=== PATIENT | male | born 1970 | race Caucasian/White ===

== ENCOUNTER 2017-11-25 01:54 | Inpatient (IN) | payer OTHER, SELFPAY ==
[2017-11-25 02:44] LABS: #Basophils 0.1 thou/uL (0.0-0.2); #Eosinphils 0.1 thou/uL (0.0-0.7); #Lymphocytes 0.9 thou/uL (1.20-3.40); #Monocytes 0.5 thou/uL (0.11-0.59); #Neutrophils 5.2 thou/uL (1.40-6.50); %Eosinophils 1.8 % (0.0-10.0); %Lymphocytes 12.6 % (21.0-51.0); %Monocytes 7.3 % (0.0-10.0); %Neutrophils 77.3 % (42.0-75.0); Hemoglobin 11.5 g/dL (14.0-18.0); Mean Corpuscular HGB CONC 33.2 g/dL (32.0-36.0); Mean Corpuscular Hemoglobin 33.1 pg (27.0-31.0); Mean Corpuscular Volume 99.7 fl (80.0-94.0); Mean Platelet Volume 6.8 fL (7.4-10.4); Platelet Count 236 thou/uL (130-400); RBC Distribution Width 14.4 % (11.5-14.5); Red Blood Cell (RBC) Count 3.48 mill/uL (4.70-6.10); White Blood Cell (WBC) Count 6.8 thou/uL (4.8-10.8)
[2017-11-25 03:01] LABS: ALT (SGPT) 30 U/L (8-55); AST (SGOT) 96 U/L (5-34); Albumin 3.8 g/dL (3.5-5.0); Alkaline Phosphatase 197 U/L (40-150); Anion Gap 13 mmol/L (10-20); BUN (Urea Nitrogen) 7 mg/dL (8.9-20.6); Bilirubin, Total 0.8 mg/dL (0.2-1.2); Calc. Creatinine Clearance 0 mL/min (70-130); Calcium 8.6 mg/dL (7.8-10.44); Carbon Dioxide 27 mmol/L (22-29); Chloride 100 mmol/L (98-107); Estimated GFR-MDRD Greater than 90; Glucose 243 mg/dL (70-105); Potassium 4.2 mmol/L (3.5-5.1); Protein, Total 6.8 g/dL (6.0-8.3); Sodium 136 mmol/L (136-145)
[2017-11-25 03:02] LABS: Acetaminophen Less than 6.0 mcg/mL (10.0-30.0); Alcohol 162 mg/dL (Less than 10); Salicylate Less than 8.0 mg/dL (15.0-30.0)
[2017-11-25 03:07] LABS: Troponin I Less than 0.010 ng/mL (< 0.028)
[2017-11-25] MEDS ORDERED: Multivitamins, Adult 10 ML, Thiamine HCl 100 MG, Folic Acid 1 MG in Dextrose 5 %-0.45 %... IV SCH (04:45)
[2017-11-25 04:54] LABS: Alcohol 164 mg/dL (Less than 10); CK (CPK) 132 U/L (30-200)
[2017-11-25] MEDS ORDERED: Guaifenesin DM 100-10/5 ML UDCUP PO PRN (05:58)
[2017-11-25] MEDS ORDERED: Dextrose 50% Abboject 50 ML SYRINGE SLOW IVP PRN ×2 (05:58→16:47)
[2017-11-25] MEDS ORDERED: Dextrose 5% in Water 1,000 ML IV PRN ×2 (05:58→16:47)
[2017-11-25] MEDS ORDERED: Ondansetron HCl/PF 4 MG/2 ML Vial IVP PRN (05:58)
[2017-11-25] MEDS ORDERED: Acetaminophen 325 MG TAB PO PRN (05:58)
[2017-11-25 06:29] LABS: Lactic Acid 2.1 mmol/L (0.5-2.2)
--- NOTE | 2017-11-25 06:51 | HP ---
REASON FOR ADMISSION: Acute encephalopathy, brief CPR for unresponsiveness at home, hypoglycemia with fingerstick glucose of 21. HISTORY OF PRESENT ILLNESS: Please note patient does not recall what happened at home. He lives with his parents and father is here at bedside. The patient went to bed at 9:00 p.m. Father heard his son moaning around 12:30 in the morning. He went to check on him. He was barely breathing and was cold and clammy. He was not coherent. He could not wake him up. He tried calling 911 and they asked him to start CPR. He did nearly 7 minutes of CPR prior to EMS arriving, who continued it for another 2 more minutes. They checked his fingerstick it was 20 and gave him IV medications. He apparently woke up in the EMS truck per father. Father also mentions that he has had nearly six such low glucose episodes in the last 5 years. The patient also drank half pint of vodka last evening and has had issues with alcohol abuse. The patient states he took 35 units of Humalog 70/30 yesterday morning. His fingerstick was 199 yesterday in am. He does not recall the exact dose he took yesterday evening. He normally takes anywhere from 20-35 units in the evenings. Currently, the patient is awake and oriented. He responds well to all questions. He is moving all 4 extremities. PAST MEDICAL AND SURGICAL HISTORY: Diabetes mellitus type 2 for last 12 years, hypothyroidism, hypertension, has wasting of small muscles of hand, foot drop, cholecystectomy. CURRENT MEDICATIONS: Humalog 70/30, 35 units in the morning and 20-35 units in the evening, Synthroid 200 mcg p.o. daily, lisinopril which was started recently by his primary care physician, Dr. Mohan. ALLERGIES: No known drug allergies. PERSONAL HISTORY: The patient is known to drink heavy alcohol, does not abuse drugs or smoke. Lives with his parents. CODE STATUS: FULL. Power of branch sales manager is his father. FAMILY HISTORY: Mother is living and has restless leg syndrome. Father is healthy. REVIEW OF SYSTEMS: The following complete review of systems was negative, unless otherwise mentioned in the HPI or below: Constitutional: Weight loss or gain, ability to conduct usual activities. Skin: Rash, itching. Eyes: Double vision, pain. ENT/Mouth: Nose bleeding, neck stiffness, pain, tenderness. Cardiovascular: Palpitations, dyspnea on exertion, orthopnea. Respiratory: Shortness of breath, wheezing, cough, hemoptysis, fever or night sweats. Gastrointestinal: Poor appetite, abdominal pain, heartburn, nausea, vomiting, constipation, or diarrhea. Genitourinary: Urgency, frequency, dysuria, nocturia. Musculoskeletal: Pain, swelling. Neurologic/Psychiatric: Anxiety, depression. Allergy/Immunologic: Skin rash, bleeding tendency. PHYSICAL EXAMINATION: GENERAL: The patient is a 47-year-old male who is currently not in any acute distress. VITAL SIGNS: Blood pressure 126/94, pulse 104 per minute, respiratory rate 16 per minute, temperature 97.5 degrees Fahrenheit, saturating 93% on room air. NECK: Supple, no elevated JVD. HEENT: Extraocular muscles intact. Pupils reacting to light. Oral cavity, mucous membranes are dry. No exudates or congestion. CARDIOVASCULAR SYSTEM: S1, S2 heard. Tachycardic, no murmur. RESPIRATORY SYSTEM: Air entry 1+ bilateral. No rales or rhonchi. ABDOMEN: Soft, bowel sounds heard. No tenderness, rigidity, or guarding. EXTREMITIES: The patient has wasting of small muscles of both upper extremities and has foot drop in lower extremities as well. He states this is due to severe peripheral neuropathy. Peripheral pulses are 2+ bilateral, no ischemic ulcerations or gangrene. CENTRAL NERVOUS SYSTEM: No gross focal deficits seen. The patient moves all 4 extremities. PSYCHIATRIC: The patient is lethargic, but wakes up easily and is oriented x3. No obvious hallucinations or delusions. LABORATORY AND X-RAY FINDINGS: EKG done shows normal sinus rhythm at 99 beats per minute, has incomplete RBBB seen. White count of 6, H&H 11 and 34, platelet count 236, MCV is 99 with 77% neutrophils. Electrolytes are stable. BUN 7, creatinine 0.7, serum glucose 243, lactic acid 2.9, AST 96, ALT 30, alkaline phosphatase 197, total bilirubin 0.8. First set of cardiac enzymes are negative. CK levels 132. Plasma alcohol level is 162. CT cervical spine, CT brain official results are pending at present. Chest x-ray by my review shows no acute cardiopulmonary abnormalities. CLINICAL IMPRESSION AND PLAN: The patient will be admitted to [facility] for severe hypoglycemia with acute encephalopathy and brief unresponsiveness leading to around 9 minutes of CPR done at home. He is currently fully oriented and follows verbal stimuli, but is lethargic. His serum sugar has been about 200. Father at bedside adds that he has had recurrent such episodes and is also alcoholic and has issues with the same. He will be on banana bag at 100 mL per hour. We will check fingerstick glucose every 2 hours and discontinue this once fingerstick glucose is consistently more than 200 at least x3. We will start him on regular diet for now. The patient has tachycardia with heart rates going up to 140s on the monitor. He also has underlying RBBB, no prior cardiac workup. It is unclear if he is just dehydrated. We will closely follow up on this and also obtain an echo with 2D Doppler for LV function. He might require outpatient stress test. DICK
--- NOTE | 2017-11-25 08:55 | RAD ---
UPRIGHT PORTABLE CHEST 1 VIEW: Date: 11/25/17 HISTORY: 47-year-old male with history of altered mental status. COMPARISON: 03/21/15. FINDINGS: Somewhat less than optimal inspiration. Heart size is within normal limits. No confluent pneumonia, o vert edema, or pleural effusion. IMPRESSION: No acute intrathoracic disease. Stable from prior study. POS: [facility]
--- NOTE | 2017-11-25 11:47 | CT ---
PRELIMINARY REPORT/[facility]/EMERGENCY AFTER HOURS PROCEDURE: EXAM: CT Head Without Intravenous Contrast EXAM DATE/TIME: Exam ordered 11/25/2017 2:37 AM CLINICAL HISTORY: 47 years old, male; Injury or trauma and signs and symptoms; Fall; Initial encounter; Abrasion; Not s pecified; Other: Unresposive; Patient HX: Unresponsive per family and cpr started, ems resumed cpr, s ugar 29, given 2 amp d50, sugar 308, pt aler, pulse palpaple and cpr stopped. TECHNIQUE: Axial computed tomography images of the head/brain without intravenous contrast. COMPARISON: No relevant prior studies available. FINDINGS: Brain: There are scattered foci of hypoattenuation within the periventricular and subcortical white m atter compatible with mild chronic microvascular ischemic change. No hemorrhage. Ventricles: Normal. No ventriculomegaly. Bones/joints: Normal. No acute fracture. Soft tissues: Normal. Sinuses: Unremarkable as visualized. No acute sinusitis. Mastoid air cells: Unremarkable as visualized. No mastoid effusion. IMPRESSION: No acute intracranial hemorrhage. Thank you for allowing us to participate in the care of your patient. Dictated and Authenticated by: Alfred Stearns MD 11/25/2017 4:09 AM Central Time ([place] & [place]) FINAL REPORT HEAD CT WITHOUT CONTRAST: Date: 11/25/17 COMPARISON: 03/21/15. HISTORY: Trauma, fall, pain. FINDINGS: This report is in agreement with the preliminary report given by [facility]. The imaged paranasal sinuses a nd mastoid air cells are well aerated. There is no displaced calvarial fracture. There is no intracra nial hemorrhage, midline shift, or mass effect. Stable mild prominence of the CSF-containing spaces w ith associated cerebral volume loss. IMPRESSION: No intracranial hemorrhage. POS: [facility]
--- NOTE | 2017-11-25 11:49 | CT ---
PRELIMINARY REPORT/[facility]/EMERGENCY AFTER HOURS PROCEDURE: EXAM: CT Cervical Spine Without Intravenous Contrast EXAM DATE/TIME: Exam ordered 11/25/2017 2:36 AM CLINICAL HISTORY: 47 years old, male; Injury or trauma; Fall; Initial encounter; Abrasion; Patient HX: Possible fall; U nresponsive per family and cpr started, ems resumed cpr, sugar 29, given 2 amp d50, sugar 308, pt marcus r, pulse palpaple and cpr stopped. TECHNIQUE: Axial computed tomography images of the cervical spine without intravenous contrast. Coronal and sagi ttal reformatted images were created and reviewed. COMPARISON: No relevant prior studies available. FINDINGS: Vertebrae: No acute cervical spine fracture is demonstrated. Discs/spinal canal/neural foramina: The cervical spine demonstrates mild to moderate degenerative joe nges at multiple levels. The vertebral foramen are grossly intact. No spinal canal stenosis. Soft tissues: Normal. Lung apices: Unremarkable as visualized. IMPRESSION: No acute cervical spine fracture is demonstrated. Thank you for allowing us to participate in the care of your patient. Dictated and Authenticated by: Alfred Stearns MD 11/25/2017 4:08 AM Central Time ([place] & [place]) FINAL REPORT CT CERVICAL SPINE WITHOUT CONTRAST: HISTORY: Trauma. Pain. Unresponsive patient. COMPARISON: None. TECHNIQUE: CT cervical spine is performed without contrast. Reformatted images are submitted for interpretation . FINDINGS: This report is in agreement with the preliminary report by [facility]. No evidence of cervical spine fractu re. Extensive degenerative change with varying degrees of central canal stenosis and foraminal narro wing. Evaluation is limited by technique. POS: [facility]
[2017-11-25] MEDS ORDERED: Lorazepam 2 MG/ML VIAL SLOW IVP PRN (12:32)
[2017-11-25 15:53] VITALS: BMI 24.8
[2017-11-25] MEDS: Sodium Chloride 0.9% 1,000 ML IV SCH ×2 (16:15→17:30)
[2017-11-25] MEDS ORDERED: HumaLOG 300 UNITS/3 ML VIAL SC PRN (16:47)
[2017-11-25] MEDS: Famotidine 20 MG TAB PO SCH ×2 (17:30→20:58)
[2017-11-25] MEDS: Enoxaparin Sodium 40 MG/0.4 ML SYRINGE SC SCH (17:30)
[2017-11-25] MEDS ORDERED: Diazepam 5 MG TAB PO PRN (17:42)
[2017-11-25] MEDS ORDERED: Diazepam 5 MG TAB PO SCH (17:45)
[2017-11-25] MEDS ORDERED: Thiamine HCl 200 MG/2 ML VIAL IM SCH (17:45)
[2017-11-25] MEDS ORDERED: Insulin Glargine 10 UNITS in Pre-Filled Syringe 1 EACH SC SCH (21:00)
[2017-11-26] MEDS ORDERED: Diazepam 5 MG TAB PO PRN (04:00)
[2017-11-26 05:23] LABS: #Basophils 0.1 thou/uL (0.0-0.2); #Eosinphils 0.4 thou/uL (0.0-0.7); #Lymphocytes 1.4 thou/uL (1.20-3.40); #Monocytes 0.8 thou/uL (0.11-0.59); #Neutrophils 5.5 thou/uL (1.40-6.50); %Basophils 0.9 % (0.0-1.0); %Eosinophils 4.7 % (0.0-10.0); %Lymphocytes 17.3 % (21.0-51.0); %Monocytes 9.5 % (0.0-10.0); %Neutrophils 67.6 % (42.0-75.0); Hemoglobin 10.9 g/dL (14.0-18.0); Mean Corpuscular HGB CONC 35.1 g/dL (32.0-36.0); Mean Corpuscular Hemoglobin 35.1 pg (27.0-31.0); Mean Platelet Volume 7.2 fL (7.4-10.4); Platelet Count 199 thou/uL (130-400); RBC Distribution Width 14.2 % (11.5-14.5); Red Blood Cell (RBC) Count 3.09 mill/uL (4.70-6.10); White Blood Cell (WBC) Count 8.2 thou/uL (4.8-10.8)
[2017-11-26 05:35] LABS: Anion Gap 17 mmol/L (10-20); BUN (Urea Nitrogen) 7 mg/dL (8.9-20.6); Calc. Creatinine Clearance 124 mL/min (70-130); Calcium 8.6 mg/dL (7.8-10.44); Carbon Dioxide 22 mmol/L (22-29); Chloride 95 mmol/L (98-107); Estimated GFR-MDRD Greater than 90; Glucose 271 mg/dL (70-105); Sodium 130 mmol/L (136-145)
[2017-11-26] MEDS ORDERED: Levothyroxine Sodium 100 MCG TAB PO SCH (06:00)
[2017-11-26] MEDS: Famotidine 20 MG TAB PO SCH (08:56)
[2017-11-26] MEDS: HumaLOG 300 UNITS/3 ML VIAL SC PRN ×3 (08:57→17:04)
[2017-11-26] MEDS: Enoxaparin Sodium 40 MG/0.4 ML SYRINGE SC SCH (08:57)
[2017-11-26] MEDS ORDERED: Multivitamins, Adult 10 ML, Thiamine HCl 100 MG, Folic Acid 1 MG in Dextrose 5 %-0.45 %... IV SCH (09:00)
[2017-11-26] MEDS ORDERED: Multivitamin W/ Minerals 1 TAB PO SCH (09:00)
[2017-11-26] MEDS ORDERED: Folic Acid 1 MG TAB PO SCH ×4 (09:00)
[2017-11-26] MEDS ORDERED: Magnesium Oxide 400 MG TAB PO SCH (09:00)
--- NOTE | 2017-11-26 12:32 | PDOC.PN ---
- Subjective Encounter Start Date: 11/26/17 Encounter Start Time: 09:30 Subjective: awake and oriented well -: no sob, has pain over sternum and back due to cpr -: no cough - Objective Resuscitation Status: Resuscitation Status FULL:Full Resuscitation MAR Reviewed: Yes Vital Signs & Weight: Vital Signs (12 hours) Temp Pulse Resp BP BP Pulse Ox 11/26/17 12:23 98.6 F 93 16 151/92 H 99 11/26/17 12:22 151/92 H 11/26/17 07:30 98.5 F 90 16 127/86 127/86 98 11/26/17 04:36 113/70 11/26/17 03:19 98.5 F 93 14 113/70 99 Weight Weight 173 lb 1.6 oz I&O: 11/25/17 11/26/17 11/27/17 06:59 06:59 06:59 Intake Total 980 Balance 980 Result Diagrams: 11/26/17 05:04 11/26/17 05:04 Additional Labs: Accuchecks 11/26/17 11/26/17 11/25/17 10:55 05:43 23:41 POC Glucose 317 H 273 H 292 H 11/25/17 11/25/17 11/25/17 20:40 16:01 14:20 POC Glucose 426 H 350 H 323 H Phys Exam - Physical Examination HEENT: PERRLA, moist MMs Neck: no nodes, no JVD Respiratory: no wheezing, no rales Cardiovascular: RRR, no significant murmur Gastrointestinal: soft, non-tender, positive bowel sounds Musculoskeletal: no edema, pulses present Neurological: non-focal, moves all 4 limbs Psychiatric: normal affect, A&O x 3 Dx/Plan (1) Acute encephalopathy Code(s): G93.40 - ENCEPHALOPATHY, UNSPECIFIED Status: Resolved (2) Hypoglycemia Code(s): E16.2 - HYPOGLYCEMIA, UNSPECIFIED Status: Resolved (3) DM type 2 (diabetes mellitus, type 2) Status: Chronic Qualifiers: Diabetes mellitus regional intermodal truck driver insulin use: with regional intermodal truck driver use Diabetes mellitus complication status: with neurologic complications Diabetes mellitus complication detail: with polyneuropathy Qualified Code(s): E11.42 - Type 2 diabetes mellitus with diabetic polyneuropathy; Z79.4 - [facility] (current) use of insulin; Z79.4 - [facility] (current) use of insulin; Z79.4 - [facility] ( current) use of insulin; Z79.4 - computer terminal operator (current) use of insulin (4) HTN (hypertension) Code(s): I10 - ESSENTIAL (PRIMARY) HYPERTENSION Status: Chronic Qualifiers: Hypertension type: essential hypertension Qualified Code(s): I10 - Essential (primary) hypertension (5) Hypothyroidism Code(s): E03.9 - HYPOTHYROIDISM, UNSPECIFIED Status: Chronic Qualifiers: Hypothyroidism type: unspecified Qualified Code(s): E03.9 - Hypothyroidism , unspecified (6) Chronic alcoholism Code(s): F10.20 - ALCOHOL DEPENDENCE, UNCOMPLICATED Status: Chronic - Plan hemostable -: await echo results -: may dc home if ef is good on echo this afternoon -: to check fingerstick bid and record to f/u with pcp -: counselled reg alc usage * . Review of Systems - Medications/Allergies Allergies/Adverse Reactions: Allergies Allergy/AdvReac Type Severity Reaction Status Date / Time No Known Allergies Allergy Verified 02/03/17 17:20 Medications: Current Medications Acetaminophen (Tylenol) 650 mg PO Q4H PRN PRN Reason: Headache/Fever or Pain Last Admin: 11/26/17 01:15 Dose: 650 mg Dextrose/Water (Dextrose 50%) 25 gm SLOW IVP PRN PRN PRN Reason: Hypoglycemia Enoxaparin Sodium (Lovenox) 40 mg SC 0900 [facility] Last Admin: 11/26/17 08:57 Dose: 40 mg Famotidine (Pepcid) 20 mg PO BID [facility] Last Admin: 11/26/17 08:56 Dose: 20 mg Folic Acid (Folvite) 1 mg PO DAILY [facility] Last Admin: 11/26/17 08:56 Dose: 1 mg Glucagon (Glucagon) 1 mg IM PRN PRN PRN Reason: Hypoglycemia Guaifenesin/Dextromethorphan (Robitussin Dm) 15 ml PO Q4H PRN PRN Reason: Cough Dextrose/Water (D5w) 1,000 mls @ 0 mls/hr IV .Q0M PRN; As Directed PRN Reason: Hypoglycemia Insulin Glargine 10 units/ (Miscellaneous Medication) 0.1 mls @ 0 mls/hr SC HS [facility] Last Admin: 11/25/17 20:59 Dose: 0.1 mls Multivitamins 10 ml/ Thiamine HCl 100 mg/ Folic Acid 1 mg/Dextrose/Sodium Chloride 1,011.2 mls @ 125 mls/hr IV DAILY [facility] Last Admin: 11/26/17 08:56 Dose: 1,011.2 mls Insulin Human Lispro (Humalog) 0 units SC .MILD SLIDING SCALE PRN PRN Reason: Mild Correctional Scale Last Admin: 11/26/17 12:24 Dose: 5 unit Insulin Human Lispro (Humalog) 0 units SC .BEDTIME SLIDING SC PRN PRN Reason: Bedtime Correctional Scale Last Admin: 11/25/17 20:59 Dose: 5 unit Levothyroxine Sodium (Synthroid) 200 mcg PO 0600 [facility] Last Admin: 11/26/17 05:41 Dose: 200 mcg Lorazepam (Ativan) 1 mg SLOW IVP Q4H PRN PRN Reason: Anxiety/Agitation Ondansetron HCl (Zofran) 4 mg IVP Q6H PRN PRN Reason: Nausea/Vomiting Sodium Chloride (Flush - Normal Saline) 10 ml IVF Q12HR [facility] Last Admin: 11/26/17 08:57 Dose: 10 ml Sodium Chloride (Flush - Normal Saline) 10 ml IVF PRN PRN PRN Reason: Saline Flush Thiamine HCl (Thiamine) 100 mg PO DAILY [facility] Last Admin: 11/26/17 08:56 Dose: 100 mg
[2017-11-26 15:18] VITALS: TEMP 98.5
--- NOTE | 2017-11-26 15:37 | RAD ---
STERNUM TWO VIEWS: History: 47-year-old male with history of chest pain following CPR for 9 minutes. FINDINGS: No evidence for an overt acute sternal fracture. IMPRESSION: No overt acute sternal fracture. POS: [facility]
--- NOTE | 2017-11-26 15:39 | RAD ---
BILATERAL RIBS THREE VIEWS: History: 47-year-old male with history of rib pain following 9 minutes of CPR. FINDINGS: Bilateral ribs demonstrates some minimal buckling of the right 10th rib anterolaterally and the left 9th anterolateral rib raising concern for green stick type fractures. No pneumothorax or pleural effu nedra. IMPRESSION: Evidence for green stick type fractures involving the left anterior 9th rib and right anterior 10th r ib. POS: [facility]
[2017-11-27 14:26] VITALS: BP 133/95
== END 2017-11-26 17:57 | disposition home or self-care (01) | DRG 637 ==
LOC: ERS 01:54 → ERHOLD 04:52 → 2NO 15:20
PROVIDERS: ADMIT Internal Medicine; ATTEND Internal Medicine
DX: E11.641 Type 2 diabetes mellitus with hypoglycemia with coma (principal); G93.40 Encephalopathy, unspecified; I10 Essential (primary) hypertension; E03.9 Hypothyroidism, unspecified; F10.20 Alcohol dependence, uncomplicated; Z79.4 Long term (current) use of insulin; M21.372 Foot drop, left foot; M21.371 Foot drop, right foot; M62.522 Muscle wasting and atrophy, not elsewhere classified, left upper arm; M62.521 Muscle wasting and atrophy, not elsewhere classified, right upper arm; E11.42 Type 2 diabetes mellitus with diabetic polyneuropathy
CPT/HCPCS: 36415; 36416; 70450; 71045; 71110; 71120; 72125; 80048; 80053; 80307; 82553; 83605; 84484; 85025; 93005; 93306; 96365; 96366; A4216; G8978-GP-CK; G8979-GP-CK; G8980-GP-CK; J1650; J3411; J3475; J7042; J7050

== ENCOUNTER 2020-12-10 17:29 | Inpatient (IN) | payer MEDICARE ==
[2020-12-10 18:23] LABS: #Basophils 0.1 thou/uL (0.0-0.2); #Eosinphils 0.1 thou/uL (0.0-0.7); #Lymphocytes 1.9 thou/uL (1.20-3.40); #Monocytes 0.7 thou/uL (0.11-0.59); #Neutrophils 3.5 thou/uL (1.40-6.50); %Basophils 1.4 % (0.0-1.0); %Eosinophils 1.1 % (0.0-10.0); %Lymphocytes 30.6 % (21.0-51.0); %Monocytes 10.6 % (0.0-10.0); %Neutrophils 56.3 % (42.0-75.0); Hemoglobin 11.5 g/dL (14.0-18.0); Mean Corpuscular HGB CONC 35.2 g/dL (32.0-36.0); Mean Corpuscular Hemoglobin 33.4 pg (27.0-31.0); Mean Platelet Volume 7.3 fL (7.4-10.4); Platelet Count 218 thou/uL (130-400); RBC Distribution Width 14.7 % (11.5-14.5); Red Blood Cell (RBC) Count 3.44 mill/uL (4.70-6.10); White Blood Cell (WBC) Count 6.3 thou/uL (4.8-10.8)
[2020-12-10 18:44] LABS: ALT (SGPT) 22 U/L (8-55); AST (SGOT) 52 U/L (5-34); Albumin 4.2 g/dL (3.5-5.0); Alkaline Phosphatase 156 U/L (40-110); Anion Gap 23 mmol/L (10-20); BUN (Urea Nitrogen) 7 mg/dL (8.4-25.7); Bilirubin, Total 0.5 mg/dL (0.2-1.2); Calc. Creatinine Clearance 0 mL/min (70-130); Calcium 9.3 mg/dL (7.8-10.44); Carbon Dioxide 19 mmol/L (22-29); Chloride 92 mmol/L (98-107); Globulin 3.4 g/dL (2.4-3.5); Glucose 231 mg/dL (70-105); Potassium 3.4 mmol/L (3.5-5.1); Protein, Total 7.6 g/dL (6.0-8.3); Sodium 131 mmol/L (136-145)
[2020-12-10] MEDS ORDERED: Vancomycin 1 GM/200 ML BAG ONE (19:17)
[2020-12-10] MEDS ORDERED: Cefepime 2 GM VIAL ONE (19:17)
[2020-12-10] MEDS ORDERED: Sodium Chloride 0.9% 100 ML ONE (19:18)
[2020-12-10] MEDS ORDERED: Cefepime 1 GM VIAL ONE (19:19)
[2020-12-10] MEDS ORDERED: Ondansetron PF 4 MG/2 ML Vial IVP PRN (21:13)
[2020-12-10] MEDS ORDERED: Acetaminophen 325 MG TAB PO PRN (21:13)
[2020-12-10] MEDS ORDERED: Ondansetron ODT 4 MG TAB PO PRN (21:13)
[2020-12-10 21:23] LABS: Lactic Acid 2.9 mmol/L (0.5-2.2)
[2020-12-10] MEDS ORDERED: Electrolyte Replacement Protocol 1 EACH FS SCH (21:30)
[2020-12-10] MEDS ORDERED: Potassium Chloride 20 MEQ TAB PO SCH (21:45)
[2020-12-10 22:19] VITALS: BMI 25.2
[2020-12-10] MEDS: HYDROcodone/Acetaminophen 5/325 mg Tablet PO PRN (22:29)
[2020-12-10] MEDS ORDERED: Dextrose 50% Abboject 50 ML SYRINGE SLOW IVP PRN (22:32)
[2020-12-10] MEDS ORDERED: Insulin Regular 300 UNITS/3 ML VIAL SC PRN (22:32)
[2020-12-10] MEDS ORDERED: HumaLOG 300 UNITS/3 ML VIAL SC PRN (22:32)
[2020-12-10] MEDS ORDERED: Dextrose 5% in Water 1,000 ML IV PRN (22:32)
[2020-12-10 23:31] LABS: Bilirubin Negative (Negative); Blood, Urine Negative (Negative); Clarity Clear (Clear); Glucose, Urine (Dipstick) 500 mg/dL (Negative); Ketone, Urine Negative (Negative); Leukocyte Small (Negative); Nitrite Negative (Negative); Protein, Urine (Dipstick) Negative (Neg-Trace); Urobilinogen 0.2 mg/dL (Less than 2)
[2020-12-10 23:34] LABS: SARS-CoV-2 NAA Rapid Test Not Detected (NotDetected)
[2020-12-10 23:34] LABS: Urine Culture Reflex No No
[2020-12-10 23:36] LABS: RBC/HPF 0-3 HPF (0-3); Squamous Epithelial 0-3 HPF (0-3)
[2020-12-10 23:37] LABS: Bacteria/HPF Rare-Few HPF (None Seen)
[2020-12-11] MEDS: Piperacillin/Tazobactam 3.375 GM in Sodium Chloride 0.9% 100 ML IVPB SCH ×3 (05:23→21:08)
[2020-12-11 05:37] LABS: #Basophils 0.1 thou/uL (0.0-0.2); #Eosinphils 0.1 thou/uL (0.0-0.7); #Lymphocytes 1.4 thou/uL (1.20-3.40); #Monocytes 0.4 thou/uL (0.11-0.59); #Neutrophils 2.4 thou/uL (1.40-6.50); %Basophils 1.3 % (0.0-1.0); %Eosinophils 1.7 % (0.0-10.0); %Lymphocytes 32.1 % (21.0-51.0); %Monocytes 9.7 % (0.0-10.0); %Neutrophils 55.2 % (42.0-75.0); Hemoglobin 11.4 g/dL (14.0-18.0); Mean Corpuscular HGB CONC 33.6 g/dL (32.0-36.0); Mean Corpuscular Volume 95.4 fL (78.0-98.0); Mean Platelet Volume 7.4 fL (7.4-10.4); Platelet Count 219 thou/uL (130-400); RBC Distribution Width 14.7 % (11.5-14.5); Red Blood Cell (RBC) Count 3.57 mill/uL (4.70-6.10); White Blood Cell (WBC) Count 4.3 thou/uL (4.8-10.8)
[2020-12-11 06:00] LABS: Anion Gap 17 mmol/L (10-20); BUN (Urea Nitrogen) 7 mg/dL (8.4-25.7); Calc. Creatinine Clearance 72 mL/min (70-130); Calcium 9.5 mg/dL (7.8-10.44); Carbon Dioxide 28 mmol/L (22-29); Chloride 97 mmol/L (98-107); Glucose 252 mg/dL (70-105); Magnesium 1.4 mg/dL (1.6-2.6); Sodium 138 mmol/L (136-145)
[2020-12-11] MEDS ORDERED: Magnesium Sulfate 4 GM in Sodium Chloride 0.9% 250 ML 250 ML IVPB SCH (06:30)
[2020-12-11] MEDS: HYDROcodone/Acetaminophen 5/325 mg Tablet PO PRN ×2 (07:13→22:37)
[2020-12-11] MEDS: Enoxaparin Sodium 40 MG/0.4 ML SYRINGE SC SCH (08:33)
[2020-12-11] MEDS: Sodium Chloride 0.9% 1,000 ML IV SCH ×2 (08:33→18:10)
[2020-12-11] MEDS: Vancomycin 1.5 GRAM/300 ML BAG 1.5 GM in Premix Bag 1 BAG IVPB SCH ×2 (10:33→21:08)
[2020-12-11] MEDS ORDERED: Dextrose 50% Abboject 50 ML SYRINGE SLOW IVP PRN (17:59)
[2020-12-11] MEDS ORDERED: Dextrose 5% in Water 1,000 ML IV PRN (17:59)
[2020-12-11] MEDS: HumaLOG 300 UNITS/3 ML VIAL SC PRN ×2 (18:08→22:25)
[2020-12-12] MEDS: Sodium Chloride 0.9% 1,000 ML IV SCH ×3 (04:19→23:02)
[2020-12-12 05:27] LABS: Hemoglobin A1c 8.9 % (4.0-6.0)
[2020-12-12] MEDS: Levothyroxine Sodium 100 MCG TAB PO SCH (05:33)
[2020-12-12] MEDS: Piperacillin/Tazobactam 3.375 GM in Sodium Chloride 0.9% 100 ML IVPB SCH ×3 (05:34→22:57)
[2020-12-12] MEDS: HumaLOG 300 UNITS/3 ML VIAL SC PRN ×2 (05:38→21:29)
[2020-12-12] MEDS: Enoxaparin Sodium 40 MG/0.4 ML SYRINGE SC SCH (08:30)
[2020-12-12] MEDS: Thiamine 100 MG TAB PO SCH (08:31)
[2020-12-12] MEDS: Vancomycin 1.5 GRAM/300 ML BAG 1.5 GM in Premix Bag 1 BAG IVPB SCH ×2 (08:45→20:04)
[2020-12-12] MEDS: Lantus 1000 UNITS/10 ML VIAL SC SCH (08:48)
[2020-12-12 09:49] LABS: Anion Gap 13 mmol/L (10-20); BUN (Urea Nitrogen) 9 mg/dL (8.4-25.7); Calc. Creatinine Clearance 96 mL/min (70-130); Calcium 8.7 mg/dL (7.8-10.44); Carbon Dioxide 30 mmol/L (22-29); Chloride 97 mmol/L (98-107); Glucose 110 mg/dL (70-105); Potassium 3.7 mmol/L (3.5-5.1); Sodium 136 mmol/L (136-145)
[2020-12-12 12:30] LABS: Lactic Acid 1.7 mmol/L (0.5-2.2)
[2020-12-12] MEDS ORDERED: Fentanyl 100 MCG/2 ML VIAL ONE (13:33)
[2020-12-12] MEDS ORDERED: Ondansetron PF 4 MG/2 ML Vial ONE (13:42)
[2020-12-12] MEDS ORDERED: PROPOFOL 200 MG/20 ML VIAL ONE (13:42)
[2020-12-12] MEDS ORDERED: Bacitracin Zinc Ointment 30 gm TUBE ONE (14:05)
[2020-12-12] MEDS: HYDROcodone/Acetaminophen 5/325 mg Tablet PO PRN ×2 (19:07→22:57)
[2020-12-13] MEDS: HYDROcodone/Acetaminophen 5/325 mg Tablet PO PRN (03:21)
[2020-12-13] MEDS: Piperacillin/Tazobactam 3.375 GM in Sodium Chloride 0.9% 100 ML IVPB SCH (05:28)
[2020-12-13] MEDS: Levothyroxine Sodium 100 MCG TAB PO SCH (05:28)
[2020-12-13] MEDS: HumaLOG 300 UNITS/3 ML VIAL SC PRN (05:29)
[2020-12-13 08:11] VITALS: TEMP 97.7
[2020-12-13] MEDS: Vancomycin 1.5 GRAM/300 ML BAG 1.5 GM in Premix Bag 1 BAG IVPB SCH (08:51)
[2020-12-13] MEDS: Lantus 1000 UNITS/10 ML VIAL SC SCH (08:54)
[2020-12-13] MEDS: Enoxaparin Sodium 40 MG/0.4 ML SYRINGE SC SCH (08:55)
[2020-12-13] MEDS: Sodium Chloride 0.9% 1,000 ML IV SCH (08:55)
[2020-12-13] MEDS: Thiamine 100 MG TAB PO SCH (08:56)
[2020-12-13 10:42] VITALS: BP 155/92
== END 2020-12-13 10:38 | disposition home or self-care (01) | DRG 300 ==
LOC: ERS 17:29 → SURG A 19:28 → INTOOBSV 19:28 → OBSVTOIN 12-11 14:25
PROVIDERS: ADMIT Student in an Organized Health Care Education/Training Program; ATTEND Internal Medicine
PROC: 0HBMXZZ Excision of Right Foot Skin, External Approach (ICD-10-PCS; principal; 2020-12-12)
PROC: 0HBRXZZ Excision of Toe Nail, External Approach (ICD-10-PCS; 2020-12-12)
DX: E10.52 Type 1 diabetes mellitus with diabetic peripheral angiopathy with gangrene (principal); I96 Gangrene, not elsewhere classified; E87.2 Acidosis; E87.1 Hypo-osmolality and hyponatremia; N17.9 Acute kidney failure, unspecified; Z20.822 Contact with and (suspected) exposure to COVID-19; F10.20 Alcohol dependence, uncomplicated; E03.9 Hypothyroidism, unspecified; E10.42 Type 1 diabetes mellitus with diabetic polyneuropathy; E10.621 Type 1 diabetes mellitus with foot ulcer; L03.032 Cellulitis of left toe; L84 Corns and callosities; L97.529 Non-pressure chronic ulcer of other part of left foot with unspecified severity; Z79.4 Long term (current) use of insulin; Z90.49 Acquired absence of other specified parts of digestive tract; Z79.51 Long term (current) use of inhaled steroids; Z79.899 Other long term (current) drug therapy
CPT/HCPCS: 36415; 36416; 80048; 80053; 80307; 81001; 83036; 83605; 83735; 85025; 87040; 87086; 96365; 96366; 96367; 96372; 96375; 96376; G0378; J0692; J1650; J1815; J2405; J2543; J2704; J3010; J3370; J3475; J3490; J7050; U0002; U0003; U0005

== ENCOUNTER 2022-11-09 16:37 | Emergency (ER) | payer OTHER ==
[2022-11-09 17:44] LABS: Hemoglobin 12.4 g/dL (14.0-18.0); Mean Corpuscular HGB CONC 35.7 g/dL (32.0-36.0); Mean Platelet Volume 7.1 fL (7.4-10.4); Platelet Count 249 10x3/uL (130-400); RBC Distribution Width 13.6 % (11.5-14.5); Red Blood Cell (RBC) Count 3.35 mill/uL (4.70-6.10)
[2022-11-09 17:58] LABS: Acetaminophen Less than 10.0 mcg/mL (10.0-30.0); Alcohol 281 mg/dL (Less than 10); Salicylate Less than 8.0 mg/dL (15.0-30.0)
[2022-11-09 18:01] LABS: ALT (SGPT) 69 U/L (8-55); AST (SGOT) 137 U/L (5-34); Alkaline Phosphatase 238 U/L (40-110); Anion Gap 27 mmol/L (10-20); BUN (Urea Nitrogen) 13 mg/dL (8.4-25.7); Bilirubin, Total 1.2 mg/dL (0.2-1.2); Calc. Creatinine Clearance 0 mL/min (70-130); Calcium 8.9 mg/dL (7.8-10.44); Carbon Dioxide 21 mmol/L (22-29); Chloride 87 mmol/L (98-107); Estimated GFR 83; Globulin 2.8 g/dL (2.4-3.5); Glucose 252 mg/dL (70-105); Magnesium 1.8 mg/dL (1.6-2.6); Potassium 3.4 mmol/L (3.5-5.1); Protein, Total 6.8 g/dL (6.0-8.3); Sodium 132 mmol/L (136-145)
[2022-11-09 18:03] LABS: Band 4 % (5-11); Eosinophils 2 % (0-10); Lymphocytes 38 % (21-51); MDiff Complete? YES; Macrocytosis SLIGHT = 6-15 cells (100X) (0-5/hpf); Monocytes 11 % (0-10); Neutrophil 43 % (42-75); Platelet Morphology Comment Appears Adequate; Polychromasia SLIGHT = 2-3 cells (100X) (0-2/hpf); Reactive Lymphocytes 2 % (0-10)
[2022-11-09 19:10] LABS: Actual Bicarbonate (HCO3v) 22.9 mEq/L (22-28); Analyzer IN Cardio ER; Base Excess -1.6 mEq/L (-2.0 to +3.0); Calcium, Ionized (venous) 1.01 mmol/L (1.16-1.32); Chloride (VBG) 89 mmol/L (98-106); Hematocrit-VBG 37 % (42.0-52.0); Hemoglobin (Hb) 12.6 g/dL (13.1-17.2); Potassium (VBG) 3.58 mmol/L (3.70-5.30); Sodium 130.4 mmol/L (133-146); pH (venous) 7.397 (7.32-7.43)
[2022-11-09] MEDS ORDERED: LORazepam 2 MG/ML SYR.(CARPUJECT) ONE (20:50)
[2022-11-09 21:04] LABS: Lactic Acid 3.3 mmol/L (0.5-2.2)
== END 2022-11-09 22:50 | disposition home or self-care (01) ==
LOC: ERS 16:37
DX: F10.129 Alcohol abuse with intoxication, unspecified (principal); E86.0 Dehydration; D72.819 Decreased white blood cell count, unspecified; E10.9 Type 1 diabetes mellitus without complications; E03.9 Hypothyroidism, unspecified; V43.52XA Car driver injured in collision with other type car in traffic accident, initial encounter; Z79.4 Long term (current) use of insulin
CPT/HCPCS: 71045; 73000; 80307; 82805; 83605; 83735; 83880; 84484; 93005; J2060; 36415; 80053; 84443; 85025; 96361; 96374

== ENCOUNTER 2023-01-07 15:12 | Inpatient (IN) | payer OTHER, MEDICARE ==
[2023-01-07] MEDS ORDERED: Ondansetron PF 4 MG/2 ML Vial ONE ×2 (16:15→22:14)
[2023-01-07 16:48] LABS: Base Excess -15.6 mEq/L (-2.0 to +3.0); Chloride (VBG) 95 mmol/L (98-106); Hematocrit-VBG 37 % (42.0-52.0); Hemoglobin (Hb) 12.5 g/dL (13.1-17.2); Potassium (VBG) 3.75 mmol/L (3.70-5.30); Sodium 138.2 mmol/L (133-146); pH (venous) 7.275 (7.32-7.43)
[2023-01-07 16:52] LABS: Actual Bicarbonate (HCO3v) 9.1 mEq/L (22-28)
[2023-01-07 16:55] LABS: #Monocytes 0.2 thou/uL (0.11-0.59); %Basophils 0.5 % (0.0-1.0); %Monocytes 4.8 % (0.0-10.0); %Neutrophils 75.2 % (42.0-75.0); Hematocrit 34.8 % (42.0-52.0); Hemoglobin 10.7 g/dL (14.0-18.0); Mean Corpuscular HGB CONC 30.7 g/dL (32.0-36.0); Mean Corpuscular Hemoglobin 33.9 pg (27.0-31.0); Mean Corpuscular Volume 110.1 fl (78.0-98.0); Mean Platelet Volume 8.9 fL (7.4-10.4); Platelet Count 162 10x3/uL (130-400); RBC Distribution Width 13.4 % (11.5-14.5); Red Blood Cell (RBC) Count 3.16 mill/uL (4.70-6.10)
[2023-01-07 17:16] LABS: ALT (SGPT) 134 U/L (8-55); AST (SGOT) 596 U/L (5-34); Albumin 3.9 g/dL (3.5-5.0); Alkaline Phosphatase 531 U/L (40-110); BUN (Urea Nitrogen) 14 mg/dL (8.4-25.7); Bilirubin, Total 0.8 mg/dL (0.2-1.2); Calc. Creatinine Clearance 0 mL/min (70-130); Calcium 8.5 mg/dL (7.8-10.44); Chloride 94 mmol/L (98-107); Estimated GFR 88; Globulin 3.1 g/dL (2.4-3.5); Glucose 324 mg/dL (70-105); Lipase 40 U/L (8-78); Magnesium 1.7 mg/dL (1.6-2.6); Potassium 3.7 mmol/L (3.5-5.1); Sodium 139 mmol/L (136-145)
[2023-01-07 17:21] LABS: Carbon Dioxide Less than 8 mmol/L (22-29); CellaVision Operator ID LAB.KB; Macrocytosis SLIGHT = 6-15 cells HPF (0-5); Platelet Adequacy Comment Platelets Normal; Polychromasia SLIGHT = 2-3 cells HPF (0-2)
[2023-01-07] MEDS ORDERED: INSULIN REGULAR IN 0.9 % NACL 100 UNITS/100 ML BAG ONE (18:27)
[2023-01-07] MEDS ORDERED: Dextrose 50% Abboject 50 ML SYRINGE SLOW IVP PRN (18:40)
[2023-01-07] MEDS ORDERED: Dextrose 5 %-0.45 % NaCl 1,000 ML IV PRN (18:40)
[2023-01-07] MEDS ORDERED: NS 0.9% w/ 20 MEQ KCL 1,000 ML IV PRN ×2 (18:40)
[2023-01-07] MEDS ORDERED: Ondansetron PF 4 MG/2 ML Vial IVP PRN (18:40)
[2023-01-07] MEDS ORDERED: Ondansetron ODT 4 MG TAB PO PRN (18:40)
[2023-01-07] MEDS ORDERED: Sodium Chloride 0.9% 1,000 ML IV PRN ×4 (18:40)
[2023-01-07] MEDS ORDERED: Electrolyte Replacement Protocol 1 EACH IVPB SCH (18:40)
[2023-01-07] MEDS ORDERED: HUMULIN R 100 UNITS in Sodium Chloride 0.9% 100 ML IVPB SCH (18:45)
[2023-01-07] MEDS ORDERED: NS 0.9% w/ 20 MEQ KCL 1,000 ML ONE (19:23)
[2023-01-07 20:29] LABS: Anion Gap 36 mmol/L (10-20); BUN (Urea Nitrogen) 13 mg/dL (8.4-25.7); Calc. Creatinine Clearance 0 mL/min (70-130); Calcium 8.6 mg/dL (7.8-10.44); Carbon Dioxide 14 mmol/L (22-29); Chloride 94 mmol/L (98-107); Estimated GFR 103; Glucose 219 mg/dL (70-105); Phosphorus 4.2 mg/dL (2.3-4.7); Sodium 140 mmol/L (136-145)
[2023-01-07 20:33] LABS: Magnesium 1.6 mg/dL (1.6-2.6)
[2023-01-07] MEDS ORDERED: Vancomycin 1 GM in Premix Bag 1 BAG IVPB SCH (21:00)
[2023-01-07] MEDS ORDERED: Cefepime 1 GM in Sodium Chloride 0.9% 100 ML IVPB SCH (21:00)
[2023-01-07] MEDS ORDERED: Hyaluronidase, Ovine 200 UNITS/ML VIAL SC SCH (22:00)
[2023-01-07] MEDS ORDERED: Pantoprazole 40 MG VIAL ONE (22:14)
[2023-01-07] MEDS ORDERED: D5 1/2 NS w/20 mEq KCL 1,000 ML IV SCH (22:15)
[2023-01-07] MEDS ORDERED: Dextrose 50% Abboject 50 ML SYRINGE ONE (22:28)
[2023-01-07] MEDS ORDERED: Magnesium 2 GM/50 ML BAG (IN WATER) ONE (22:43)
[2023-01-07 23:19] LABS: Anion Gap 28 mmol/L (10-20); BUN (Urea Nitrogen) 12 mg/dL (8.4-25.7); Calc. Creatinine Clearance 0 mL/min (70-130); Calcium 7.7 mg/dL (7.8-10.44); Carbon Dioxide 19 mmol/L (22-29); Chloride 97 mmol/L (98-107); Estimated GFR 104; Glucose 265 mg/dL (70-105); Potassium 3.9 mmol/L (3.5-5.1); Sodium 140 mmol/L (136-145)
[2023-01-08] MEDS: Famotidine 20 MG TAB PO SCH ×3 (00:44→20:36)
[2023-01-08] MEDS ORDERED: VANCOMYCIN 1.75 GM/500 ML BAG 1.75 GM in Premix Bag 1 BAG IVPB SCH (00:45)
[2023-01-08] MEDS ORDERED: Cefepime 1 GM in Sodium Chloride 0.9% 100 ML IVPB SCH (01:00)
[2023-01-08] MEDS: Thiamine HCl 200 MG/2 ML VIAL SLOW IVP SCH ×3 (01:28→20:36)
[2023-01-08] MEDS ORDERED: Metoclopramide HCl 10 MG/2 ML VIAL IVP SCH (02:45)
[2023-01-08] MEDS: D5 1/2 NS w/20 mEq KCL 1,000 ML IV PRN ×2 (03:16→08:04)
[2023-01-08 04:12] LABS: #Monocytes 0.4 thou/uL (0.11-0.59); #Neutrophils 4.1 thou/uL (1.40-6.50); %Basophils 0.5 % (0.0-1.0); %Eosinophils 0.5 % (0.0-10.0); %Lymphocytes 17.3 % (21.0-51.0); %Monocytes 7.5 % (0.0-10.0); %Neutrophils 73.8 % (42.0-75.0); Hemoglobin 8.4 g/dL (14.0-18.0); Mean Corpuscular HGB CONC 33.6 g/dL (32.0-36.0); Mean Corpuscular Hemoglobin 34.6 pg (27.0-31.0); Platelet Count 150 10x3/uL (130-400); RBC Distribution Width 13.1 % (11.5-14.5); Red Blood Cell (RBC) Count 2.43 mill/uL (4.70-6.10); White Blood Cell (WBC) Count 5.5 10x3/uL (4.8-10.8)
[2023-01-08 04:20] LABS: Mean Corpuscular Volume 102.9 fl (78.0-98.0)
[2023-01-08 04:37] LABS: Anion Gap 18 mmol/L (10-20); Anion Gap 19 mmol/L (10-20); BUN (Urea Nitrogen) 10 mg/dL (8.4-25.7); BUN (Urea Nitrogen) 11 mg/dL (8.4-25.7); Calc. Creatinine Clearance 114 mL/min (70-130); Calc. Creatinine Clearance 115 mL/min (70-130); Calcium 7.5 mg/dL (7.8-10.44); Carbon Dioxide 22 mmol/L (22-29); Carbon Dioxide 23 mmol/L (22-29); Chloride 100 mmol/L (98-107); Chloride 101 mmol/L (98-107); Estimated GFR 102; Estimated GFR 103; Glucose 234 mg/dL (70-105); Glucose 243 mg/dL (70-105); Magnesium 1.7 mg/dL (1.6-2.6); Potassium 4.1 mmol/L (3.5-5.1); Potassium 4.2 mmol/L (3.5-5.1); Sodium 137 mmol/L (136-145); Sodium 138 mmol/L (136-145)
[2023-01-08] MEDS ORDERED: Magnesium 2 GM/50 ML(in water) 2 GM in Premix Bag 1 BAG IVPB SCH (08:00)
[2023-01-08] MEDS: Folic Acid 1 MG TAB PO SCH (08:04)
[2023-01-08 08:46] LABS: Amphetamine Not Detected (NotDetected); Barbiturates Screen Not Detected (NotDetected); Benzodiazepine Screen Not Detected (NotDetected); Cocaine Metabolite Screen Not Detected (NotDetected); Methadone Not Detected (NotDetected); Methamphetamine Not Detected (NotDetected); Opiate Screen Not Detected (NotDetected); Oxycodone Screen Not Detected (NotDetected); Phencyclidine (PCP) Not Detected (NotDetected); THC/Cannabinoid Screen Not Detected (NotDetected); Tricyclic Screen Not Detected (NotDetected)
[2023-01-08] MEDS ORDERED: Dextrose 50% Abboject 50 ML SYRINGE SLOW IVP PRN (09:14)
[2023-01-08] MEDS ORDERED: Glucagon 1 MG/ML KIT IM PRN (09:14)
[2023-01-08] MEDS ORDERED: Dextrose 5% in Water 1,000 ML IV PRN (09:14)
[2023-01-08] MEDS ORDERED: Lorazepam 2 MG/ML VIAL SLOW IVP PRN (09:16)
[2023-01-08 09:31] LABS: INR-International Normal Ratio 1.1; Prothrombin Time 14.4 sec (12.0-14.7)
[2023-01-08 09:41] LABS: Anion Gap 16 mmol/L (10-20); BUN (Urea Nitrogen) 11 mg/dL (8.4-25.7); Calc. Creatinine Clearance 95 mL/min (70-130); Calcium 7.6 mg/dL (7.8-10.44); Carbon Dioxide 26 mmol/L (22-29); Chloride 99 mmol/L (98-107); Estimated GFR 82; Glucose 201 mg/dL (70-105); Sodium 137 mmol/L (136-145)
[2023-01-08] MEDS ORDERED: Levothyroxine Sodium 100 MCG TAB PO SCH (11:00)
[2023-01-08] MEDS: Insulin Glargine 30 UNITS/0.3 ML VIAL SC SCH (11:18)
[2023-01-08] MEDS: Cefepime 2 GM in Sodium Chloride 0.9% 100 ML IVPB SCH (11:18)
[2023-01-08] MEDS: Vancomycin 1.5 GRAM/300 ML BAG 1.5 GM in Premix Bag 1 BAG IVPB SCH (15:30)
[2023-01-08 16:14] LABS: Hematocrit 25.8 % (42.0-52.0); Hemoglobin 8.7 g/dL (14.0-18.0)
[2023-01-09] MEDS: Cefepime 2 GM in Sodium Chloride 0.9% 100 ML IVPB SCH ×2 (01:50→12:49)
[2023-01-09] MEDS: Acetaminophen 325 MG TAB PO PRN ×2 (01:54→16:28)
[2023-01-09] MEDS: Vancomycin 1.5 GRAM/300 ML BAG 1.5 GM in Premix Bag 1 BAG IVPB SCH (02:02)
[2023-01-09] MEDS: Levothyroxine Sodium 100 MCG TAB PO SCH (05:34)
[2023-01-09 06:28] LABS: Anion Gap 17 mmol/L (10-20); BUN (Urea Nitrogen) 6 mg/dL (8.4-25.7); Calc. Creatinine Clearance 108 mL/min (70-130); Calcium 8.2 mg/dL (7.8-10.44); Carbon Dioxide 30 mmol/L (22-29); Chloride 87 mmol/L (98-107); Estimated GFR 97; Glucose 186 mg/dL (70-105); Potassium 3.8 mmol/L (3.5-5.1); Sodium 130 mmol/L (136-145)
[2023-01-09] MEDS: Folic Acid 1 MG TAB PO SCH (09:45)
[2023-01-09] MEDS: Famotidine 20 MG TAB PO SCH ×2 (09:45→20:19)
[2023-01-09] MEDS: Insulin Glargine 30 UNITS/0.3 ML VIAL SC SCH (09:46)
[2023-01-09] MEDS: HumaLOG 300 UNITS/3 ML VIAL SC PRN (12:53)
[2023-01-09 14:06] LABS: Vancomycin, Trough 19.4 ug/mL
[2023-01-09] MEDS: Vancomycin 1 GM in Premix Bag 1 BAG IVPB SCH (16:29)
[2023-01-09] MEDS: Thiamine HCl 200 MG/2 ML VIAL SLOW IVP SCH ×2 (20:01→20:19)
[2023-01-10] MEDS: Cefepime 2 GM in Sodium Chloride 0.9% 100 ML IVPB SCH ×2 (00:26→13:19)
[2023-01-10] MEDS: Acetaminophen 325 MG TAB PO PRN (00:29)
[2023-01-10] MEDS: Vancomycin 1 GM in Premix Bag 1 BAG IVPB SCH ×2 (04:31→16:38)
[2023-01-10] MEDS: Levothyroxine Sodium 100 MCG TAB PO SCH (05:29)
[2023-01-10] MEDS: HumaLOG 300 UNITS/3 ML VIAL SC PRN (05:30)
[2023-01-10 06:53] LABS: Anion Gap 16 mmol/L (10-20); BUN (Urea Nitrogen) 5 mg/dL (8.4-25.7); Calc. Creatinine Clearance 117 mL/min (70-130); Calcium 9.3 mg/dL (7.8-10.44); Carbon Dioxide 31 mmol/L (22-29); Chloride 87 mmol/L (98-107); Estimated GFR 103; Glucose 270 mg/dL (70-105); Potassium 4.3 mmol/L (3.5-5.1); Sodium 130 mmol/L (136-145)
[2023-01-10] MEDS: Famotidine 20 MG TAB PO SCH ×2 (08:14→20:50)
[2023-01-10] MEDS: Folic Acid 1 MG TAB PO SCH (08:14)
[2023-01-10] MEDS: Insulin Glargine 30 UNITS/0.3 ML VIAL SC SCH (08:14)
[2023-01-10] MEDS: HYDROcodone/Acetaminophen 5/325 mg Tablet PO PRN ×3 (13:19→22:48)
[2023-01-10] MEDS: Thiamine HCl 200 MG/2 ML VIAL SLOW IVP SCH (20:52)
[2023-01-11] MEDS: Cefepime 2 GM in Sodium Chloride 0.9% 100 ML IVPB SCH ×2 (00:15→13:59)
[2023-01-11 05:12] LABS: Vancomycin, Trough 21.8 ug/mL
[2023-01-11 05:15] LABS: Anion Gap 13 mmol/L (10-20); BUN (Urea Nitrogen) 10 mg/dL (8.4-25.7); Calc. Creatinine Clearance 103 mL/min (70-130); Calcium 8.8 mg/dL (7.8-10.44); Carbon Dioxide 31 mmol/L (22-29); Chloride 90 mmol/L (98-107); Estimated GFR 91; Glucose 219 mg/dL (70-105); Potassium 3.9 mmol/L (3.5-5.1); Sodium 130 mmol/L (136-145)
[2023-01-11] MEDS: Levothyroxine Sodium 100 MCG TAB PO SCH (06:26)
[2023-01-11] MEDS: HYDROcodone/Acetaminophen 5/325 mg Tablet PO PRN ×4 (06:27→23:37)
[2023-01-11] MEDS: HumaLOG 300 UNITS/3 ML VIAL SC PRN ×2 (06:27→17:29)
[2023-01-11] MEDS: Vancomycin HCl 750 MG in Sodium Chloride 0.9% 250 ML 250 ML IVPB SCH ×2 (06:28→17:29)
[2023-01-11] MEDS: Vancomycin 1 GM in Premix Bag 1 BAG IVPB SCH (06:28)
[2023-01-11] MEDS: Folic Acid 1 MG TAB PO SCH (08:35)
[2023-01-11] MEDS: Famotidine 20 MG TAB PO SCH ×2 (08:35→21:11)
[2023-01-11] MEDS: Insulin Glargine 30 UNITS/0.3 ML VIAL SC SCH (08:35)
[2023-01-11] MEDS: Thiamine HCl 200 MG/2 ML VIAL SLOW IVP SCH (21:11)
[2023-01-12 05:41] LABS: Anion Gap 14 mmol/L (10-20); BUN (Urea Nitrogen) 10 mg/dL (8.4-25.7); Calc. Creatinine Clearance 122 mL/min (70-130); Calcium 9.2 mg/dL (7.8-10.44); Carbon Dioxide 30 mmol/L (22-29); Chloride 91 mmol/L (98-107); Estimated GFR 105; Glucose 183 mg/dL (70-105); Potassium 3.7 mmol/L (3.5-5.1); Sodium 131 mmol/L (136-145)
[2023-01-12] MEDS: HYDROcodone/Acetaminophen 5/325 mg Tablet PO PRN ×4 (06:28→23:38)
[2023-01-12] MEDS: Vancomycin HCl 750 MG in Sodium Chloride 0.9% 250 ML 250 ML IVPB SCH (06:29)
[2023-01-12] MEDS: Levothyroxine Sodium 100 MCG TAB PO SCH (06:29)
[2023-01-12] MEDS: HumaLOG 300 UNITS/3 ML VIAL SC PRN ×3 (06:32→20:18)
[2023-01-12] MEDS: Folic Acid 1 MG TAB PO SCH (08:32)
[2023-01-12] MEDS: Insulin Glargine 30 UNITS/0.3 ML VIAL SC SCH (08:32)
[2023-01-12] MEDS: Famotidine 20 MG TAB PO SCH ×2 (08:32→20:16)
[2023-01-12] MEDS: Thiamine HCl 200 MG/2 ML VIAL SLOW IVP SCH (20:16)
[2023-01-12] MEDS: Ketorolac Tromethamine 30 MG/ML VIAL IVP PRN (23:39)
[2023-01-13] MEDS: HYDROcodone/Acetaminophen 5/325 mg Tablet PO PRN ×5 (04:26→21:28)
[2023-01-13] MEDS: Levothyroxine Sodium 100 MCG TAB PO SCH (05:41)
[2023-01-13] MEDS: HumaLOG 300 UNITS/3 ML VIAL SC PRN ×3 (05:43→18:32)
[2023-01-13 07:30] LABS: Anion Gap 15 mmol/L (10-20); BUN (Urea Nitrogen) 13 mg/dL (8.4-25.7); Calc. Creatinine Clearance 124 mL/min (70-130); Calcium 8.6 mg/dL (7.8-10.44); Carbon Dioxide 26 mmol/L (22-29); Chloride 93 mmol/L (98-107); Estimated GFR 105; Glucose 185 mg/dL (70-105); Potassium 3.7 mmol/L (3.5-5.1); Sodium 130 mmol/L (136-145)
[2023-01-13] MEDS: Famotidine 20 MG TAB PO SCH ×2 (08:26→21:26)
[2023-01-13] MEDS: Folic Acid 1 MG TAB PO SCH (08:26)
[2023-01-13] MEDS: Insulin Glargine 30 UNITS/0.3 ML VIAL SC SCH (08:26)
[2023-01-13 12:02] VITALS: BMI 27.1
[2023-01-13] MEDS: Ketorolac Tromethamine 30 MG/ML VIAL IVP PRN (12:52)
[2023-01-13] MEDS: Thiamine HCl 200 MG/2 ML VIAL SLOW IVP SCH (21:26)
[2023-01-14] MEDS: HumaLOG 300 UNITS/3 ML VIAL SC PRN ×3 (01:30→13:12)
[2023-01-14] MEDS: Ketorolac Tromethamine 30 MG/ML VIAL IVP PRN (01:31)
[2023-01-14] MEDS: HYDROcodone/Acetaminophen 5/325 mg Tablet PO PRN ×3 (02:13→10:27)
[2023-01-14] MEDS: Levothyroxine Sodium 100 MCG TAB PO SCH (05:52)
[2023-01-14 07:08] LABS: Anion Gap 14 mmol/L (10-20); BUN (Urea Nitrogen) 12 mg/dL (8.4-25.7); Calc. Creatinine Clearance 110 mL/min (70-130); Calcium 8.9 mg/dL (7.8-10.44); Carbon Dioxide 26 mmol/L (22-29); Chloride 95 mmol/L (98-107); Estimated GFR 101; Glucose 276 mg/dL (70-105); Potassium 4.3 mmol/L (3.5-5.1); Sodium 131 mmol/L (136-145)
[2023-01-14] MEDS: Folic Acid 1 MG TAB PO SCH (08:19)
[2023-01-14] MEDS: Insulin Glargine 30 UNITS/0.3 ML VIAL SC SCH (08:19)
[2023-01-14] MEDS: Famotidine 20 MG TAB PO SCH (08:19)
[2023-01-14 14:59] VITALS: BP 168/104; TEMP 97.4
[2023-01-14] MEDS ORDERED: HumaLOG 300 UNITS/3 ML VIAL SC SCH ×2 (15:00→17:00)
== END 2023-01-14 18:25 | disposition home or self-care (01) | DRG 638 ==
LOC: ERS 15:12 → IMCU/EMU 18:04 → T4-B 01-09 12:33
PROVIDERS: ADMIT Internal Medicine; ATTEND Internal Medicine Geriatric Medicine
PROC: 06HY33Z Insertion of Infusion Device into Lower Vein, Percutaneous Approach (ICD-10-PCS; principal; 2023-01-07)
PROC: 4A033R1 Measurement of Arterial Saturation, Peripheral, Percutaneous Approach (ICD-10-PCS; 2023-01-07)
DX: E10.10 Type 1 diabetes mellitus with ketoacidosis without coma (principal); G93.49 Other encephalopathy; S42.401A Unspecified fracture of lower end of right humerus, initial encounter for closed fracture; F10.10 Alcohol abuse, uncomplicated; E03.9 Hypothyroidism, unspecified; Z60.2 Problems related to living alone; I73.9 Peripheral vascular disease, unspecified; G62.9 Polyneuropathy, unspecified; S70.02XA Contusion of left hip, initial encounter; W18.30XA Fall on same level, unspecified, initial encounter; Y92.009 Unspecified place in unspecified non-institutional (private) residence as the place of occurrence of the external cause; I48.91 Unspecified atrial fibrillation; Z79.4 Long term (current) use of insulin; Z91.148 Patient's other noncompliance with medication regimen for other reason; Z71.41 Alcohol abuse counseling and surveillance of alcoholic; Z79.890 Hormone replacement therapy; Z79.899 Other long term (current) drug therapy; Z90.49 Acquired absence of other specified parts of digestive tract; E10.621 Type 1 diabetes mellitus with foot ulcer; E10.40 Type 1 diabetes mellitus with diabetic neuropathy, unspecified; L97.521 Non-pressure chronic ulcer of other part of left foot limited to breakdown of skin
CPT/HCPCS: 36415; 36416; 36556; 71045; 76705; 80048; 80053; 80202; 80306; 82010; 82805; 83690; 83735; 84100; 84484; 85025; 85610; 87040; 87077; 87149; 87186; 93005; 93923; 96361; 96365; 96367; 96372; 96375; 96376; 97139; C9113; J0692; J1650; J1815; J1885; J2405; J2765; J3370; J3370-JW; J3411; J3471; J3475; J3480; J3490; J7050; J7999

== ENCOUNTER 2023-06-16 14:25 | Outpatient (CLI) | payer OTHER ==
[2023-06-16 15:33] LABS: Hemoglobin 12.5 g/dL (13.5-17.5); Mean Corpuscular HGB CONC 34.7 g/dL (32.0-36.0); Mean Corpuscular Volume 97.8 fl (81.2-95.1); Mean Platelet Volume 9.3 fl (7.4-10.4); Platelet Count 198 10x3/uL (150-450); RBC Distribution Width 13.7 % (11.5-14.5); Red Blood Cell (RBC) Count 3.68 10x6/uL (4.32-5.72); White Blood Cell (WBC) Count 5.8 10x3/uL (3.5-10.5)
[2023-06-16 15:54] LABS: BUN (Urea Nitrogen) 8 mg/dL (8.4-25.7); Calc. Creatinine Clearance 0 mL/min (70-130); Calcium 8.5 mg/dL (7.8-10.44); Carbon Dioxide 25 mmol/L (22-29); Estimated GFR 103; Glucose 165 mg/dL (70-105)
[2023-06-16 16:13] LABS: Anion Gap 20 mmol/L (10-20); Chloride 99 mmol/L (98-107); Potassium 4.1 mmol/L (3.5-5.1); Sodium 140 mmol/L (136-145)
== END 2023-06-16 14:26 | disposition home or self-care (01) ==
LOC: LABBT 14:25
PROVIDERS: ATTEND Orthopaedic Surgery
DX: Z01.818 Encounter for other preprocedural examination (principal)
CPT/HCPCS: 80048; 85027; 93005; 93010

== ENCOUNTER 2023-06-18 09:59 | Day surgery (SDC) | payer OTHER ==
[2023-06-16 11:06] VITALS: BMI 25.8
[2023-06-18 11:38] LABS: Acetaminophen Less than 10 mcg/mL (10.0-30.0); Alcohol 344.4 mg/dL (Less than 10); Salicylate Less than 8.0 mg/dL (15.0-30.0)
== END 2023-06-18 11:55 | disposition home or self-care (01) ==
LOC: SDC 09:59
PROVIDERS: ATTEND Orthopaedic Surgery
DX: S52.031A Displaced fracture of olecranon process with intraarticular extension of right ulna, initial encounter for closed fracture (principal); Z53.9 Procedure and treatment not carried out, unspecified reason; W06.XXXA Fall from bed, initial encounter; Z90.49 Acquired absence of other specified parts of digestive tract; Z79.899 Other long term (current) drug therapy
CPT/HCPCS: 36415; 36416; 80307

== ENCOUNTER 2023-06-24 10:30 | Day surgery (SDC) | payer OTHER ==
[2023-06-20 12:05] VITALS: BMI 25.8
[2023-06-24 11:25] LABS: Acetaminophen Less than 10 mcg/mL (10.0-30.0); Alcohol Less than 10.0 mg/dL (Less than 10); Salicylate Less than 8.0 mg/dL (15.0-30.0)
[2023-06-24] MEDS ORDERED: fentaNYL 50 mcg/mL 1 mL Vial ONE ×2 (11:55→14:26)
[2023-06-24] MEDS ORDERED: Midazolam HCl 2 mg/2 ml Vial ONE (11:55)
[2023-06-24] MEDS ORDERED: Ropivacaine 0.5% HCl/PF (150 MG/30 ML VIAL) ONE (12:00)
[2023-06-24] MEDS ORDERED: Rocuronium Bromide 10 MG/ML (10ML VIAL) ONE (12:05)
[2023-06-24] MEDS ORDERED: Ondansetron PF 4 MG/2 ML Vial ONE (12:05)
[2023-06-24] MEDS ORDERED: fentaNYL PF 100 MCG/2 ML SYRINGE ONE (12:05)
[2023-06-24] MEDS ORDERED: PROPOFOL 40 ML ONE (12:05)
[2023-06-24] MEDS ORDERED: Lidocaine 1% PF 5 ML VIAL ONE (12:05)
[2023-06-24] MEDS ORDERED: Dexamethasone 4 mg/ml Vial ONE (12:05)
[2023-06-24] MEDS ORDERED: SUGAMMADEX SODIUM 200 MG/2 ML VIAL ONE (12:06)
[2023-06-24] MEDS ORDERED: CEFAZOLIN 2 GM VIAL ONE (12:22)
[2023-06-24] MEDS ORDERED: Sodium Chloride 0.9% 100 ML ONE (12:22)
[2023-06-24] MEDS ORDERED: Dexmedetomidine 200 MCG/2 ML VIAL ONE (13:03)
[2023-06-24] MEDS ORDERED: PHENYLEPHRINE-NS 100 MCG/ML 10 ML SYRINGE ONE (13:03)
[2023-06-24] MEDS ORDERED: Ketorolac Tromethamine 30 MG/ML VIAL ONE (14:27)
== END 2023-06-24 16:05 | disposition home or self-care (01) ==
LOC: SDC 10:30
PROVIDERS: ATTEND Orthopaedic Surgery
PROC: 0PSK04Z Reposition Right Ulna with Internal Fixation Device, Open Approach (ICD-10-PCS; principal; 2023-06-24)
DX: S52.031A Displaced fracture of olecranon process with intraarticular extension of right ulna, initial encounter for closed fracture (principal); I48.91 Unspecified atrial fibrillation; E10.9 Type 1 diabetes mellitus without complications; E07.9 Disorder of thyroid, unspecified; Z98.49 Cataract extraction status, unspecified eye; W06.XXXA Fall from bed, initial encounter
CPT/HCPCS: 24685; 73080; 80307; 82962; C1713; J3010; 36415; 36416; J1100; J1885; J2250; J2405; J2704; J2795; J3490

== ENCOUNTER 2023-07-05 09:27 | Inpatient (IN) | payer OTHER ==
[2023-07-05 09:54] LABS: #Basophils 0.1 thou/uL (0.0-0.2); #Eosinphils 0.1 thou/uL (0.0-0.7); #Monocytes 0.4 thou/uL (0.11-0.59); #Neutrophils 3.6 thou/uL (1.40-6.50); %Basophils 1.1 % (0.0-1.0); %Eosinophils 0.9 % (0.0-10.0); %Monocytes 7.4 % (0.0-10.0); %Neutrophils 65.1 % (42.0-75.0); Hematocrit 38.5 % (42.0-52.0); Hemoglobin 12.9 g/dL (14.0-18.0); Mean Corpuscular HGB CONC 33.5 g/dL (32.0-36.0); Mean Corpuscular Hemoglobin 33.1 pg (27.0-31.0); Mean Corpuscular Volume 98.7 fl (78.0-98.0); Mean Platelet Volume 9.3 fL (7.4-10.4); Platelet Count 163 10x3/uL (130-400); RBC Distribution Width 13.5 % (11.5-14.5); White Blood Cell (WBC) Count 5.6 10x3/uL (4.8-10.8)
[2023-07-05 09:56] LABS: Actual Bicarbonate (HCO3v) 20.7 mEq/L (22-28); Analyzer IN Cardio ER; Base Excess -5.3 mEq/L (-2.0 to +3.0); Calcium, Ionized (venous) 1.07 mmol/L (1.16-1.32); Chloride (VBG) 92 mmol/L (98-106); Hematocrit-VBG 38 % (42.0-52.0); Potassium (VBG) 3.94 mmol/L (3.70-5.30); Sodium 139 mmol/L (133-146); pH (venous) 7.309 (7.32-7.43)
[2023-07-05 10:27] LABS: ALT (SGPT) 58 U/L (8-55); AST (SGOT) 184 U/L (5-34); Albumin 3.6 g/dL (3.5-5.0); Alkaline Phosphatase 349 U/L (40-110); Anion Gap 29 mmol/L (10-20); BUN (Urea Nitrogen) 12 mg/dL (8.4-25.7); Bilirubin, Total 1.2 mg/dL (0.2-1.2); Calc. Creatinine Clearance 0 mL/min (70-130); Calcium 8.5 mg/dL (7.8-10.44); Carbon Dioxide 22 mmol/L (22-29); Chloride 90 mmol/L (98-107); Estimated GFR 66; Globulin 3.2 g/dL (2.4-3.5); Magnesium 1.6 mg/dL (1.6-2.6); Potassium 3.8 mmol/L (3.5-5.1); Protein, Total 6.8 g/dL (6.0-8.3); Sodium 137 mmol/L (136-145)
[2023-07-05 10:28] LABS: Acetaminophen Less than 10 mcg/mL (10.0-30.0); Alcohol 446.7 mg/dL (Less than 10); Lipase 71 U/L (8-78); Salicylate Less than 8.0 mg/dL (15.0-30.0)
[2023-07-05 10:45] LABS: Critical Call Chemistry NUR.NS2 @1045; Glucose 607 mg/dL (70-105)
[2023-07-05 10:47] LABS: Phosphorus 4.5 mg/dL (2.3-4.7)
[2023-07-05] MEDS ORDERED: Sodium Chloride 0.9% 1,000 ML IV PRN ×4 (11:57)
[2023-07-05] MEDS ORDERED: Senokot S 8.6-50 MG TAB PO PRN (11:57)
[2023-07-05] MEDS ORDERED: Electrolyte Replacement Protocol 1 EACH IVPB SCH (11:57)
[2023-07-05] MEDS ORDERED: Ondansetron PF 4 MG/2 ML Vial IVP PRN (11:57)
[2023-07-05] MEDS ORDERED: Bisacodyl 10 MG SUPP PR PRN (11:57)
[2023-07-05] MEDS ORDERED: Dextrose 5 %-0.45 % NaCl 1,000 ML IV PRN (11:57)
[2023-07-05] MEDS ORDERED: Acetaminophen 325 MG TAB PO PRN (11:57)
[2023-07-05] MEDS ORDERED: Bisacodyl 5 MG TAB PO PRN (11:57)
[2023-07-05] MEDS ORDERED: Dextrose 50% Abboject 50 ML SYRINGE SLOW IVP PRN ×2 (11:57→21:40)
[2023-07-05] MEDS ORDERED: D5 1/2 NS w/20 mEq KCL 1,000 ML IV PRN (11:57)
[2023-07-05] MEDS ORDERED: NS 0.9% w/ 20 MEQ KCL 1,000 ML IV PRN ×2 (11:57)
[2023-07-05] MEDS ORDERED: INSULIN REGULAR IN 0.9 % NACL 100 UNITS/100 ML BAG ONE (12:00)
[2023-07-05] MEDS ORDERED: HUMULIN R 100 UNITS in Sodium Chloride 0.9% 100 ML IVPB SCH (12:00)
[2023-07-05 12:32] LABS: INR-International Normal Ratio 0.9; Prothrombin Time 12.2 sec (12.0-14.7)
[2023-07-05 12:33] LABS: PTT 28.6 sec (22.9-36.1)
[2023-07-05 12:40] LABS: Hemoglobin A1c 9.8 % (4.0-6.0)
[2023-07-05] MEDS ORDERED: NS 0.9% w/ 40 MEQ KCL 1,000 ML IV SCH (12:45)
[2023-07-05 13:25] LABS: Lactic Acid 2.8 mmol/L (0.5-2.2)
[2023-07-05 13:26] LABS: Anion Gap 27 mmol/L (10-20); BUN (Urea Nitrogen) 12 mg/dL (8.4-25.7); Calc. Creatinine Clearance 0 mL/min (70-130); Calcium 7.8 mg/dL (7.8-10.44); Carbon Dioxide 20 mmol/L (22-29); Chloride 97 mmol/L (98-107); Estimated GFR 82; Phosphorus 4.1 mg/dL (2.3-4.7); Potassium 3.6 mmol/L (3.5-5.1); Sodium 140 mmol/L (136-145)
[2023-07-05 13:42] LABS: Critical Call Chemistry NUR.NS2 @1342; Glucose 519 mg/dL (70-105)
[2023-07-05 14:51] VITALS: BMI 27.8
[2023-07-05] MEDS ORDERED: FLU VACC QS2023-24(6MOS UP)/PF 60 MCG/0.5 ML SYRINGE IM ONE (15:00)
[2023-07-05] MEDS: Thiamine HCl 200 MG/2 ML VIAL SLOW IVP SCH ×2 (15:10→20:16)
[2023-07-05 17:18] LABS: Anion Gap 24 mmol/L (10-20); BUN (Urea Nitrogen) 10 mg/dL (8.4-25.7); Calc. Creatinine Clearance 122 mL/min (70-130); Calcium 7.4 mg/dL (7.8-10.44); Carbon Dioxide 19 mmol/L (22-29); Chloride 103 mmol/L (98-107); Estimated GFR 104; Glucose 243 mg/dL (70-105); Potassium 3.7 mmol/L (3.5-5.1); Sodium 142 mmol/L (136-145)
[2023-07-05 20:40] LABS: Anion Gap 17 mmol/L (10-20); BUN (Urea Nitrogen) 9 mg/dL (8.4-25.7); Calc. Creatinine Clearance 126 mL/min (70-130); Calcium 7.6 mg/dL (7.8-10.44); Carbon Dioxide 23 mmol/L (22-29); Chloride 104 mmol/L (98-107); Estimated GFR 105; Glucose 143 mg/dL (70-105); Potassium 3.8 mmol/L (3.5-5.1); Sodium 140 mmol/L (136-145)
[2023-07-05] MEDS ORDERED: Lorazepam 1 MG TAB PO PRN (21:06)
[2023-07-05] MEDS ORDERED: Lorazepam 2 MG/ML VIAL IM PRN (21:06)
[2023-07-05] MEDS ORDERED: Ondansetron ODT 4 MG TAB PO PRN (21:06)
[2023-07-05] MEDS ORDERED: Electrolyte Replacement Protocol 1 EACH FS SCH (21:15)
[2023-07-05] MEDS: Lorazepam 1 MG TAB PO SCH (21:19)
[2023-07-05] MEDS ORDERED: Dextrose 5% in Water 1,000 ML IV PRN (21:40)
[2023-07-05] MEDS ORDERED: HumaLOG 300 UNITS/3 ML VIAL SC PRN ×2 (21:40)
[2023-07-05] MEDS ORDERED: Glucagon 1 MG/ML KIT IM PRN (21:40)
[2023-07-05] MEDS: Insulin Glargine 30 UNITS/0.3 ML VIAL SC SCH (22:09)
[2023-07-05 22:19] LABS: Free T4 (Free Thyroxine) 0.68 ng/dL (0.70-1.48)
[2023-07-05] MEDS: hydrALAZINE 20 MG/ML VIAL SLOW IVP PRN (23:52)
[2023-07-06] MEDS: Lorazepam 1 MG TAB PO SCH ×4 (02:15→20:27)
[2023-07-06] MEDS ORDERED: Magnesium 2 GM/50 ML(in water) 2 GM in Premix 1 BAG IVPB SCH ×2 (08:00→14:00)
[2023-07-06 08:01] LABS: #Basophils 0.1 thou/uL (0.0-0.2); #Eosinphils 0.1 thou/uL (0.0-0.7); #Monocytes 0.5 thou/uL (0.11-0.59); #Neutrophils 3.7 thou/uL (1.40-6.50); %Basophils 0.9 % (0.0-1.0); %Eosinophils 0.9 % (0.0-10.0); %Lymphocytes 22.2 % (21.0-51.0); %Monocytes 9.7 % (0.0-10.0); %Neutrophils 65.9 % (42.0-75.0); Hematocrit 32.8 % (42.0-52.0); Hemoglobin 11.1 g/dL (14.0-18.0); Mean Corpuscular HGB CONC 33.8 g/dL (32.0-36.0); Mean Corpuscular Hemoglobin 33.6 pg (27.0-31.0); Mean Corpuscular Volume 99.4 fl (78.0-98.0); Mean Platelet Volume 9.1 fL (7.4-10.4); Platelet Count 128 10x3/uL (130-400); RBC Distribution Width 13.7 % (11.5-14.5); White Blood Cell (WBC) Count 5.6 10x3/uL (4.8-10.8)
[2023-07-06 08:19] LABS: INR-International Normal Ratio 0.9; Prothrombin Time 12.3 sec (12.0-14.7)
[2023-07-06 08:20] LABS: PTT 26.7 sec (22.9-36.1)
[2023-07-06 08:26] LABS: Anion Gap 20 mmol/L (10-20); BUN (Urea Nitrogen) 9 mg/dL (8.4-25.7); Calc. Creatinine Clearance 119 mL/min (70-130); Calcium 7.6 mg/dL (7.8-10.44); Carbon Dioxide 23 mmol/L (22-29); Cardiac Risk 1.8 (Less than 4.5); Chloride 98 mmol/L (98-107); Cholesterol 168 mg/dl (< 200 Desired); Estimated GFR 102; Glucose 180 mg/dL (70-105); HDL Cholesterol 91 mg/dL (>60 Neg Risk); LDL Cholesterol, Calculated 67 mg/dL; Magnesium 1.1 mg/dL (1.6-2.6); Potassium 4.2 mmol/L (3.5-5.1); Sodium 137 mmol/L (136-145); Triglycerides 48 mg/dL (Less than 150)
[2023-07-06] MEDS: Thiamine HCl 200 MG/2 ML VIAL SLOW IVP SCH ×3 (08:47→20:27)
[2023-07-06] MEDS: Folic Acid 1 MG TAB PO SCH (08:47)
[2023-07-06] MEDS: Cyanocobalamin (Vitamin B-12) 1,000 MCG TAB PO SCH (08:47)
[2023-07-06] MEDS: Insulin Glargine 30 UNITS/0.3 ML VIAL SC SCH ×2 (08:48→20:27)
[2023-07-06 10:10] LABS: ALT (SGPT) 53 U/L (8-55); AST (SGOT) 149 U/L (5-34); Albumin 3.4 g/dL (3.5-5.0); Alkaline Phosphatase 327 U/L (40-110); Bilirubin, Direct 0.6 mg/dL (0.1-0.3); Bilirubin, Total 1.5 mg/dL (0.2-1.2); Protein, Total 6.1 g/dL (6.0-8.3)
[2023-07-06] MEDS: hydrALAZINE 20 MG/ML VIAL SLOW IVP PRN (10:51)
[2023-07-06 15:06] VITALS: BP 146/90
[2023-07-06] MEDS ORDERED: Lorazepam 1 MG TAB PO PRN (21:06)
[2023-07-06 21:40] LABS: Bacteria/HPF None Seen HPF (None Seen); Bilirubin Negative (Negative); Blood, Urine Negative (Negative); CAUTI Indications for Culture Alt mental st,lethar; Clarity Clear (Clear); Glucose, Urine (Dipstick) 100 mg/dL (Negative); Ketone, Urine Negative (Negative); Leukocyte Negative Leu/uL (Negative); Nitrite Negative (Negative); Protein, Urine (Dipstick) Negative (Neg-Trace); RBC/HPF 0-3 HPF (0-3); Specific Gravity, Urine 1.008 (1.002-1.036); Squamous Epithelial None Seen HPF (0-3); Urobilinogen Normal mg/dL (Less than 2); WBC/HPF None Seen HPF (0-3)
[2023-07-06 21:41] LABS: Urine Culture Reflex No No
[2023-07-07] MEDS: Lorazepam 1 MG TAB PO SCH ×2 (04:14→10:53)
[2023-07-07 08:23] LABS: #Eosinphils 0.1 thou/uL (0.0-0.7); #Monocytes 0.5 thou/uL (0.11-0.59); #Neutrophils 3.1 thou/uL (1.40-6.50); %Basophils 0.6 % (0.0-1.0); %Lymphocytes 25.4 % (21.0-51.0); %Monocytes 10.4 % (0.0-10.0); %Neutrophils 61.2 % (42.0-75.0); Mean Corpuscular HGB CONC 34.3 g/dL (32.0-36.0); Mean Corpuscular Hemoglobin 33.6 pg (27.0-31.0); Mean Platelet Volume 10.5 fL (7.4-10.4); Platelet Count 124 10x3/uL (130-400); RBC Distribution Width 13.2 % (11.5-14.5); Red Blood Cell (RBC) Count 3.57 mill/uL (4.70-6.10); White Blood Cell (WBC) Count 5.1 10x3/uL (4.8-10.8)
[2023-07-07 08:52] LABS: Anion Gap 15 mmol/L (10-20); BUN (Urea Nitrogen) 8 mg/dL (8.4-25.7); Calc. Creatinine Clearance 127 mL/min (70-130); Calcium 8.2 mg/dL (7.8-10.44); Carbon Dioxide 27 mmol/L (22-29); Chloride 92 mmol/L (98-107); Estimated GFR 104; Glucose 189 mg/dL (70-105); Magnesium 1.7 mg/dL (1.6-2.6); Potassium 4.6 mmol/L (3.5-5.1); Sodium 129 mmol/L (136-145)
[2023-07-07 09:09] LABS: INR-International Normal Ratio 0.9; Prothrombin Time 12.3 sec (12.0-14.7)
[2023-07-07 09:20] LABS: PTT 28.3 sec (22.9-36.1)
[2023-07-07] MEDS ORDERED: Magnesium 2 GM/50 ML(in water) 2 GM in Premix 1 BAG IVPB SCH (10:00)
[2023-07-07] MEDS: Folic Acid 1 MG TAB PO SCH (10:53)
[2023-07-07] MEDS: Thiamine HCl 200 MG/2 ML VIAL SLOW IVP SCH (10:53)
[2023-07-07] MEDS: Cyanocobalamin (Vitamin B-12) 1,000 MCG TAB PO SCH (10:53)
[2023-07-07] MEDS: Insulin Glargine 30 UNITS/0.3 ML VIAL SC SCH (11:25)
[2023-07-07 12:31] VITALS: TEMP 98.8
[2023-07-07] MEDS ORDERED: Insulin Glargine 30 UNITS/0.3 ML VIAL SC SCH (21:00)
[2023-07-07] MEDS ORDERED: Lorazepam 1 MG TAB PO PRN (21:06)
[2023-07-07] MEDS ORDERED: Lorazepam 0.5 MG TAB PO SCH (21:15)
[2023-07-08] MEDS ORDERED: Lorazepam 0.5 MG TAB PO PRN (21:06)
== END 2023-07-07 16:51 | disposition home or self-care (01) | DRG 637 ==
LOC: SUATTDRO 09:27 → ERS 09:27 → IMCU/EMU 11:49
PROVIDERS: ADMIT Family Medicine; ATTEND Emergency Medicine
PROC: 4A043R1 Measurement of Venous Saturation, Peripheral, Percutaneous Approach (ICD-10-PCS; principal; 2023-07-05)
DX: E10.10 Type 1 diabetes mellitus with ketoacidosis without coma (principal); G93.41 Metabolic encephalopathy; S42.401A Unspecified fracture of lower end of right humerus, initial encounter for closed fracture; E03.9 Hypothyroidism, unspecified; I48.91 Unspecified atrial fibrillation; G47.33 Obstructive sleep apnea (adult) (pediatric); Y90.8 Blood alcohol level of 240 mg/100 ml or more; D53.9 Nutritional anemia, unspecified; R74.01 Elevation of levels of liver transaminase levels; E10.65 Type 1 diabetes mellitus with hyperglycemia; F10.229 Alcohol dependence with intoxication, unspecified; K70.10 Alcoholic hepatitis without ascites; W19.XXXA Unspecified fall, initial encounter; Z71.41 Alcohol abuse counseling and surveillance of alcoholic
CPT/HCPCS: 36415; 36416; 70450; 71045; 72125; 80048; 80053; 80061; 80076; 80307; 81001; 82010; 82607; 82805; 83036; 83605; 83690; 83735; 84100; 84439; 84443; 84481; 85025; 85610; 85730; 86850; 86900; 86901; J0360; J1815; J2405; J3411; J3475; J3480; J3490